=== PATIENT | female | born 1980 | race Caucasian/White ===

== ENCOUNTER 2017-01-30 09:40 | Emergency (ER) | payer OTHER ==
[~2017-01-30] VITALS: Ht 154.9 cm; Wt 65.8 kg
--- NOTE | ~2017-01-30 | EKG ---
PATIENT: FELICIA PEREZ UNIT #: [id number] Ventricular Rate: 95 BPM Atrial Rate: 95 BPM P-R Interval: 144 ms QRS Duration: 94 ms Q-T Interval: 362 ms QTC Calculation(Bezet): 454 ms P [place] English: 66 degrees Calculated R [place] English: -64 degrees Calculated T [place] English: 56 degrees Diagnosis Line: Normal sinus rhythm Diagnosis Line: Left axis deviation Diagnosis Line: Abnormal ECG Diagnosis Line: When compared with ECG of 07-DEC-2015 18:11, Diagnosis Line: QRS axis Shifted left Diagnosis Line: Confirmed by QUEENIE LIZARRAGA MD ([id number]) on Diagnosis Line: 01/30/2017 10:43:24 PM INTERPRETING MD: VALENTINE
--- NOTE | ~2017-01-30 | CR72 ---
[facility] A Service of [facility] RADIOLOGY TEXT RESULTS PATIENT: FELICIA PEREZ LOCATION: [facility] : [id number] UNIT #: [id number] AGE: [address]: Maddie Escobar MD SEX: F ORDER DR: [id number] [facility] [address] [place], [place] [address] [id number] E MR#: [id number] Acc #: [id number] NAME: FELICIA PEREZ : 1980 SEX: F STUDY DATE/TIME: 01/30/2017 10:05 UNIT: [facility] ROOM: STUDY DESCRIPTION: CR Chest Single View Portable Attending Physician: Maddie Escobar M.D. Ordering Physician: Maddie Escobar M.D. Primary Care Physician: Primary Care Physician No MEDICAL IMAGING REPORT This report is preliminary unless electronic signature is present EXAM Portable chest x-ray, 01/30/2017 HISTORY Short of air, asthma, anemia. FINDINGS AP radiograph of the chest is presented. Comparison 12/07/2015. Comparison also 07/24/2016. The bony structures are unremarkable. Heart and mediastinum normal in size and contour. The lungs somewhat hyperinflated bilaterally likely reflecting the patient's stated history of asthma. There is no evidence of acute infectious or inflammatory disease, pleural effusion or pneumothorax. No suspicious nodule. Dictated by... Aric Holguin M.D. THIS IS AN ELECTRONICALLY VERIFIED REPORT Aric Holguin M.D. at 01/31/2017 2:46 PM Jesica TD: 01/30/2017 12:39 JOB #: [id number] MEDICAL IMAGING REPORT Page 1 of 1 COPY
[~2017-01-30 09:40] MED LIST: ACETAMINOPHEN PR; ADVAIR 250-501 EACH IH; ALBUTEROL MININEB NEB; ALBUTEROL17 G1 INH; ALBUTEROL17 GM INH; AZITHROMYCIN500 MG PO; CIPRO PO; COMBIVENT INH14.7 G1 IH; DUONEB 2.5-0.5 M3 ML NEB; ELIMITE60 GM TOP; FEOSOL PO; FLEXERIL10 MG PO; FLOVENT DISKU100 MCG INH; IRON1 TA1 PO; IRON1 TAB PO; KLONOPIN PO; LEVAQUIN750 M1 PO; LORTAB 10-5001 EACH PO; LORTAB 5/500 TA1 TA1 PO; MEDROL PO; NICOTINE TRANSD14 MG EXT; ORUDIS75 M1 PO; PREDNISONE PO; PREDNISONE10 MG PO; PROAIR HFA8.5 GM INH; VICODIN 5/1 TAB 5/50 PO; ZOLOFT50 MG PO
[2017-01-30 11:42] LABS: URINE SOURCE CLEAN CATCH
[2017-01-30 12:09] LABS: URINE APPEARANCE CLOUDY; URINE BILIRUBIN NEG (NEG); URINE BLOOD TRACE (NEG); URINE COLOR YELLOW; URINE GLUCOSE NEG (NEG); URINE KETONE 2+ (NEG); URINE LEUKOCYTE ESTERASE NEG (NEG); URINE NITRATE NEG (NEG); URINE PH 5.5 (5-8); URINE PROTEIN NEG (NEG); URINE SPECIFIC GRAVITY 1.014 (1.003-1.035); URINE UROBILINOGEN 0.2 MG/DL (NEG)
[2017-01-30 12:11] LABS: CULTURE INDICATED? YES; U HYALINE CASTS AUWI 0-2 /[LPF]; URBCS1 AUWI 0-2 /[HPF] (0-2); URINE BACTERIA AUWI 1+ (NEGATIVE); URINE SQUAMOUS EPITHELIAL CELL FEW /[HPF]
[2017-01-30 12:44] LABS: AMPHETAMINE POS (NEG); BARBITURATES NEG (NEG); BENZODIAZEPINES POS (NEG); COCAINE NEG (NEG); MARIJUANA NEG (NEG); OPIATES NEG (NEG); TRICYCLIC ANTIDEPRESSANTS NEG (NEG); U METHADONE NEG (NEG)
== END 2017-01-30 13:06 | disposition home or self-care (01) ==
LOC: CED 09:40
PROVIDERS: Emergency Medicine
DX: J45.901 Unspecified asthma with (acute) exacerbation (principal); F17.200 Nicotine dependence, unspecified, uncomplicated
CPT/HCPCS: 71010; 80307; 81003; 84703; 87086; 87088; 93005; 94640; 99285